=== PATIENT | male | born 1985 | race Caucasian/White ===

== ENCOUNTER 2018-01-10 21:16 | Emergency (ER) | payer OTHER ==
[~2018-01-10] VITALS: Ht 170.2 cm; Wt 158.8 kg
[2018-01-10 21:25] VITALS: Ht 170.2 cm; Wt 158.8 kg
[2018-01-10 22:55] VITALS: BP 112/57
== END 2018-01-10 22:55 | disposition home or self-care (01) ==
LOC: ED 21:16
DX: T78.3XXA Angioneurotic edema, initial encounter (principal); E66.9 Obesity, unspecified; Z68.43 Body mass index [BMI] 50.0-59.9, adult; Y92.89 Other specified places as the place of occurrence of the external cause
CPT/HCPCS: J0171; J2930; J3490